=== PATIENT | male | born 1970 | race Caucasian/White ===

== ENCOUNTER 2025-01-26 10:46 | Emergency (ER) | payer OTHER, SELFPAY ==
[2025-01-26] VITALS (38 sets, daily range): BP systolic 107–153; BP diastolic 74–96; PULSE 63–98; RESP 10–39; TEMP 36.4; O2SAT 94–100
--- NOTE | 2025-01-26 10:45 | RT.EKG_ITS ---
APPROVED REPORT Exam: Resting ECG Reason for Exam: Repeat Patient Location: E HR:86 bpm ECG Measurements Heart Rate 86 AXIS MI 132 P -64 QRSd 87 QRS 86 QT 346 T 54 QTc 414 Conclusion Ectopic atrial rhythm...abnormal P axis, normal rate ST elevation suggests acute pericarditis...ST >0.10mV, ant/lat/inf No STEMI
--- NOTE | 2025-01-26 10:45 | RT.EKG_ITS ---
APPROVED REPORT Exam: Resting ECG Reason for Exam: Chest Pain Patient Location: E HR:89 bpm ECG Measurements Heart Rate 89 AXIS DE 120 P -75 QRSd 86 QRS 88 QT 339 T 38 QTc 414 Conclusion Sinus or ectopic atrial rhythm...P axis (-45,135) No STEMI but with concerning ST segment elevations in leads II and aVF.
--- NOTE | 2025-01-26 10:59 | ED.GENADUL_ITS ---
Discharge Plan Disposition Patient Disposition: Home Condition: Stable Discharge Details Clinical Impression: Chest pain, Anxiety Primary Care Provider: Unknown,Unknown ED Provider: Veronica Rashid Home Meds and New Rx's Prescriptions: No Action No Known Home Meds Discharge Instructions Instructions: Troponin Test, Chest Pain, Adult ED, Anxiety, Adult ED Additional Instructions: At this time no evidence for acute heart attack. No evidence for pneumonia. Please follow-up with primary care provider within the next 5 to 7 days. Return to the ER for any worsening chest pain, shortness of breath, fever vomiting or concerns. Thank you for allowing us to care for you today. Please take Tylenol or Ibuprofen with food every 4-6 hours as needed for pain and swelling. Referrals: [facility] [Provider Group] - Return if symptoms worsen Primary Care Provider [Outside] - 1 week HPI General Mode of arrival: ambulatory . Date/Time Provider Initiated Documentation: 01/26/25 10:53 . Limitations to Documentation: no limitations . Information obtained by: patient, RN notes reviewed and old records reviewed . HPI Narrative: 54-year-old male presents to the ER with a chief complaint of bilateral chest pain which began approximately 20 to 30 minutes ago. 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 He is a daily smoker and endorses alcohol which she has been trying to cut down from he reports last alcohol intake was last night. Does have some shortness of breath. Denies any productive cough. No significant known cardiac history. Does appear anxious. Is tachypneic. Lungs are clear to auscultation bilaterally. Initial EKG does show some ST elevations in the inferior leads, will repeat the EKG. There is some artifact. Patient was given 324 mg of chewable baby aspirin upon arrival. Related Data Home Medications ?Medication ?Instructions ?Recorded ?Confirmed Unknown [No Known Home Meds] 01/26/25 01/26/25 Allergies Allergy/AdvReac Type Severity Reaction Status Date / Time No Known Allergies Allergy Unverified 01/26/25 11:04 General Stated Complaint: Chest Pain RELL: 2 Review of Systems All systems reviewed & are unremarkable except as noted in HPI and below Cardiovascular Cardiovascular: Reports as per HPI, Reports chest pain and Reports dyspnea Respiratory Respiratory: Reports dyspnea Exam Narrative Exam Narrative: Constitutional: Alert and oriented x3. Appears stated age. Normal body habitus. Patient appears anxious upon arrival. Head: Normocephalic, no trauma. Eyes: Pupils PERRL, Red reflex noted, EOM's intact. Eyelids symmetrical without lesions, discharge, or swelling. ENT: Bilateral TM's WNL, External ear normal to inspection, no mastoid TTP, swelling, or erythema, Nasal turbinates WNL, no nasal discharge. Normal dentition, Posterior pharynx WNL, no exudate. Chest: RRR, Normal S1, S2, distal pulses intact. Resp: Lungs clear to auscultation bilaterally, no wheezes, rales, or rhonchi. Abdomen: Soft, non-distended, Normoactive bowel sounds all 4 quads. Musculoskeletal: Normal gait, Moves all 4 extremities without difficulty. Skin: No suspicious rashes or lesions. Capillary refill less than 2 sec. Neurologic: Cranial nerves II-XII intact. Alert and oriented x 3. Motor: No deficits noted. Sensory: Intact bilaterally all 4 extremities. Hematologic/Lymphatic: No ecchymosis, no lymphadenopathy. Course Vital Signs Vital signs: Vital Signs Temperature 36.4 C 01/26/25 10:55 Pulse 90 01/26/25 10:55 Respiratory Rate 25 H 01/26/25 10:55 Blood Pressure 153/89 H 01/26/25 10:55 Pulse Oximetry 100 01/26/25 10:55 Temperature 36.4 C 01/26/25 10:55 Temperature Source Oral 01/26/25 10:55 Pulse 90 01/26/25 10:55 Respiratory Rate 25 H 01/26/25 10:55 Blood Pressure 153/89 H 01/26/25 10:55 Blood Pressure Position Supine 01/26/25 10:55 Pulse Oximetry 100 01/26/25 10:55 Oxygen Delivery Method Room Air 01/26/25 10:55 Oxygen Flow Rate 0 01/26/25 10:55 Medical Decision Making 54-year-old male presents to the ER with a chief complaint of bilateral chest pain which began approximately 20 to 30 minutes ago. 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 He is a daily smoker and endorses alcohol which she has been trying to cut down from he reports last alcohol intake was last night. Does have some shortness of breath. Denies any productive cough. No significant known cardiac history. Does appear anxious. Is tachypneic. Lungs are clear to auscultation bilaterally. Initial EKG does show some ST elevations in the inferior leads, will repeat the EKG. There is some artifact. Patient was given 324 mg of chewable baby aspirin upon arrival. Cardiac workup ordered including CBC CMP, magnesium, PT PTT serial troponins chest x-ray. Patient given 324 mg of chewable aspirin upon arrival. EKG was reviewed by myself and Dr. Alex BEASLEY attending, no old EKG available for review, there is some artifact, questionable inferior leads ST elevation. Repeat ordered. CBC within normal limits, no leukocytosis, sodium 141 potassium 4.9 alk phos 152 initial troponin is less than 4, proBNP 69 which is within normal limits. Ethyl alcohol level added on. Chest x-ray within normal limits. Awaiting serial troponins. 1154: On patient reevaluation he reports that his pain is gone. I did discuss his normal workup thus far. Awaiting serial troponins informed of plan of care he verbalized understanding. 1413: Patient has had 3 negative serial troponins. No return of chest pain. He has remained hemodynamically stable throughout the remainder of his stay. Per his friend at the bedside he has been under a lot of stress lately this could be due to anxiety and stress. Chest x-ray is also within normal limits. Discussed lab results, plan of care and follow-up verbalized understanding. Discussed strict return instructions to return if any recurrent pain or feeling sicker at any time. Patient remained hemodynamically stable throughout the remainder of stay. Patient placed on the care management PCP establishment list. This text was generated using [employer] system, please disregard any od dities of phrase or misspellings. Medical Records Medical records reviewed: Yes I reviewed the patient's medical records. Lab Data Lab results reviewed: Yes I reviewed the patient's lab results. Labs: Laboratory Tests Range/Units 01/26/25 01/26/25 01/26/25 10:54 10:59 11:45 WBC (4.4-10.8) 10^3/uL 9.22 RBC (4.36-5.78) 10^6/uL 4.69 Hgb (13.5-17.5) g/dL 15.3 Hct (40.0-50.0) % 45.7 MCV (80-95) fL 97 H MCH (27.0-33.0) pg 32.6 MCHC (32.0-36.0) % 33.5 RDW (11.8-14.1) % 13.2 Plt Count (130-400) 10^3/uL 310 MPV (8.0-11.0) fL 8.5 Immature Gran % % 0.4 Neutrophils % % 68.9 Lymphocytes % % 21.0 Monocytes % % 8.7 Eosinophils % % 0.3 Basophils % % 0.7 Nucleated RBC % (0.0-0.3) % 0.0 Absolute Neutrophils (1.2-6.7) 10^3/uL 6.35 Absolute Lymphocytes (1.2-3.4) 10^3/uL 1.94 Absolute Monocytes (0.1-0.8) 10^3/uL 0.80 Absolute Eosinophils (0.0-0.7) 10^3/uL 0.03 Absolute Basophils (0.0-0.2) 10^3/uL 0.06 PT (9.1-11.1) sec 9.3 INR (0.9-1.1) 0.9 APTT (20.6-30.2) sec 26.4 Sodium (136-145) mmol/L 141 Potassium (3.5-5.1) mmol/L 4.9 Chloride (98-107) mmol/L 103 Carbon Dioxide (21.0-32.0) mmol/L 29.5 Anion Gap (3-11) mmol/L 8.5 BUN (7-18) mg/dL 6 L Creatinine (0.70-1.30) mg/dL 0.9 Est GFR (CKD-EPI 2020) (mL/min/1.73m2) 102.12 Glucose (74-106) mg/dL 102 Calcium (8.5-10.1) mg/dL 9.7 Magnesium mg/dL 2.1 Total Bilirubin (0.2-1.0) mg/dL 0.5 AST (15-37) U/L 18 ALT (16-63) U/L 24 Alkaline Phosphatase (46-116) U/L 152 H Troponin I (<or=76) ng/L 4 6 NT-Pro-B Natriuret Pep (<300) pg/mL 69 Total Protein (6.4-8.2) g/dL 7.7 Albumin (3.4-5.0) g/dL 3.6 Ethyl Alcohol (<10) mg/dL < 3.0 Range/Units 01/26/25 13:24 WBC (4.4-10.8) 10^3/uL RBC (4.36-5.78) 10^6/uL Hgb (13.5-17.5) g/dL Hct (40.0-50.0) % MCV (80-95) fL MCH (27.0-33.0) pg MCHC (32.0-36.0) % RDW (11.8-14.1) % Plt Count (130-400) 10^3/uL MPV (8.0-11.0) fL Immature Gran % % Neutrophils % % Lymphocytes % % Monocytes % % Eosinophils % % Basophils % % Nucleated RBC % (0.0-0.3) % Absolute Neutrophils (1.2-6.7) 10^3/uL Absolute Lymphocytes (1.2-3.4) 10^3/uL Absolute Monocytes (0.1-0.8) 10^3/uL Absolute Eosinophils (0.0-0.7) 10^3/uL Absolute Basophils (0.0-0.2) 10^3/uL PT (9.1-11.1) sec INR (0.9-1.1) APTT (20.6-30.2) sec Sodium (136-145) mmol/L Potassium (3.5-5.1) mmol/L Chloride (98-107) mmol/L Carbon Dioxide (21.0-32.0) mmol/L Anion Gap (3-11) mmol/L BUN (7-18) mg/dL Creatinine (0.70-1.30) mg/dL Est GFR (CKD-EPI 2020) (mL/min/1.73m2) Glucose (74-106) mg/dL Calcium (8.5-10.1) mg/dL Magnesium mg/dL Total Bilirubin (0.2-1.0) mg/dL AST (15-37) U/L ALT (16-63) U/L Alkaline Phosphatase (46-116) U/L Troponin I (<or=76) ng/L 4 NT-Pro-B Natriuret Pep (<300) pg/mL Total Protein (6.4-8.2) g/dL Albumin (3.4-5.0) g/dL Ethyl Alcohol (<10) mg/dL Quality:SDOH Health Related Social Needs: No Data to Display PFSH All Active Problems (Updated 01/26/25 @ 14:16 by Veronica Rashid NP) Anxiety (Chronic) Chest pain (Acute) Social History Smoking/Tobacco Use Status: Current every day Tobacco Type: cigarettes Smoking risk assessment performed?: Yes Alcohol Intake: current Alcohol Intake frequency: 0-2 drinks per day Alcohol type: beer Drug use: Daily Substance use type: marijuana Housing: apartment Do you feel safe at home: Yes Do you feel safe in your relationship?: Yes
--- NOTE | 2025-01-26 11:00 | RT.EKG_ITS ---
APPROVED REPORT Exam: Resting ECG Reason for Exam: Chest pain Patient Location: E HR:81 bpm ECG Measurements Heart Rate [address] 137 P -63 QRSd 86 QRS 67 QT 358 T 45 QTc 415 Conclusion Ectopic atrial rhythm...abnormal P axis, normal rate ST elev, probable normal early repol pattern...ST elevation, age<55 No STEMI
[2025-01-26 11:05] LABS: Abs Immature Grans 0.04 10^3/uL (0.0-0.06); Absolute Basophil Count 0.06 10^3/uL (0.0-0.2); Absolute Eosinophil Count 0.03 10^3/uL (0.0-0.7); Absolute Lymphocyte Count 1.94 10^3/uL (1.2-3.4); Absolute Neutrophil Count 6.35 10^3/uL (1.2-6.7); Basophils % 0.7 %; Eosinophils % 0.3 %; HCT 45.7 % (40.0-50.0); HGB 15.3 g/dL (13.5-17.5); Immature Grans % 0.4 %; MCH 32.6 pg (27.0-33.0); MCHC 33.5 % (32.0-36.0); MCV 97 fL (80-95); MPV 8.5 fL (8.0-11.0); Monocytes % 8.7 %; Neutrophils % 68.9 %; Platelet Count 310 10^3/uL (130-400); RBC 4.69 10^6/uL (4.36-5.78); RDW 13.2 % (11.8-14.1); RDW-SD 47.1 fL; WBC 9.22 10^3/uL (4.4-10.8)
[2025-01-26] MEDS: Aspirin 81 MG CHEW 324 MG CH (11:09)
[2025-01-26 11:19] LABS: INR 0.9 (0.9-1.1); PTT Activated 26.4 sec (20.6-30.2); Prothrombin Time 9.3 sec (9.1-11.1)
--- NOTE | 2025-01-26 11:23 | DI.RAD_ITS ---
Exam(s) XR PORTABLE CHEST AP EXAM: XR PORTABLE CHEST AP CLINICAL HISTORY: Chest pain TECHNIQUE: 2D digital imaging was performed of the chest. One image was obtained. An AP view was ob tained. COMPARISON: No exams were available for comparison FINDINGS: MEDIASTINUM: Normal. HEART: Normal. PULMONARY VASCULATURE: Normal. LUNGS: Clear. PLEURAL SPACE: No pleural effusion or pneumothorax. BONE:Within normal limits for the patient's age. OTHER FINDINGS:Normal. IMPRESSION: No acute pulmonary findings. DATA REPOSITORY: RADIATION DOSE DELIVERED:
[2025-01-26 11:30] LABS: ALT 24 U/L (16-63); AST 18 U/L (15-37); Albumin 3.6 g/dL (3.4-5.0); Alkaline Phosphatase 152 U/L (46-116); Anion Gap 8.5 mmol/L (3-11); BUN 6 mg/dL (7-18); Bilirubin, Total 0.5 mg/dL (0.2-1.0); CO2 29.5 mmol/L (21.0-32.0); CREATININE 0.9 mg/dL (0.70-1.30); Calcium 9.7 mg/dL (8.5-10.1); Chloride 103 mmol/L (98-107); Estimated GFR 102.12 (mL/min/1.73m2); Glucose 102 mg/dL (74-106); Magnesium 2.1 mg/dL; NT-proBNP 69 pg/mL (<300); Potassium 4.9 mmol/L (3.5-5.1); Sodium 141 mmol/L (136-145); Total Protein 7.7 g/dL (6.4-8.2); Troponin I 4 ng/L (<or=76)
[2025-01-26 12:05] LABS: ETHANOL BLOOD < 3.0 mg/dL (<10)
[2025-01-26 12:09] LABS: Troponin I 6 ng/L (<or=76)
[2025-01-26 14:03] LABS: Troponin I 4 ng/L (<or=76)
== END 2025-01-26 14:30 | disposition home or self-care (01) ==
PROVIDERS: Emergency Provider Registered Nurse Emergency
DX: R07.9 Chest pain, unspecified (principal); F41.9 Anxiety disorder, unspecified; F17.210 Nicotine dependence, cigarettes, uncomplicated
CPT/HCPCS: 36415; 80053; 93005; 99285; 71045; 80320; 83735; 83880; 84484; 85025; 85610; 85730; 93010; 99284